=== PATIENT | male | born 1945 | race Caucasian/White ===

== ENCOUNTER 2016-11-25 07:16 | Inpatient (IN) | payer OTHER ==
[~2016-11-25 07:16] MED LIST: ACETAMINOPHEN 325 MG TAB PO ONE; CEFAZOLIN 2 GM/DEXTR 100 ML IV ONE; CHLORHEXIDINE GLUC HIBICLENS 118 ML BTL TP ONE; DEXAMETHASONE 4 MG/ML VIAL IVP ONE; FAMOTIDINE 20 MG TAB PO ONE; ROPI/epiNEPH/KETOROLAC JOINT COCKTAIL IU ONE; TRANEXAMIC ACID 3,000 MG in NS 50 ML IRR ONE
[2016-11-25] MEDS ORDERED: LIDOCAINE 1% 5 ML SDV ONE (07:29)
[2016-11-25] MEDS ORDERED: TRANEXAMIC ACID 3,000 MG/50 ML BAG IRR ONE (07:30)
[2016-11-25] MEDS ORDERED: SKIN ADHESIVE (DERMABOND) 1 EACH TP ONE (07:30)
[2016-11-25] MEDS ORDERED: LR 1,000 ML IV ONE (08:12)
[2016-11-25] MEDS ORDERED: MIDAZOLAM 2 MG/2 ML VIAL ONE (09:19)
[2016-11-25] MEDS ORDERED: PROPOFOL/EMULSION 500 MG/50 ML BOTTLE IV ONE ×2 (09:22→10:24)
[2016-11-25] MEDS ORDERED: LIDOCAINE 2% JELLY 5 ML TUBE ONE (09:51)
[2016-11-25] MEDS ORDERED: PHENYLEPHRINE HCL 100 MCG/ML SYR ONE (10:49)
[2016-11-25] MEDS ORDERED: oxyCODONE IR 5 MG TAB PO PRN (11:03)
[2016-11-25] MEDS ORDERED: POLYETHYLENE GLYCOL 3350 17 GM PKT PO PRN (11:03)
[2016-11-25] MEDS ORDERED: DIPHENOXYLATE/ATROPINE LOMOTIL 1 TAB PO PRN (11:03)
[2016-11-25] MEDS ORDERED: ONDANSETRON 4 MG/2 ML VIAL IVP PRN (11:03)
[2016-11-25] MEDS ORDERED: PROMETHAZINE HCL 25 MG SUPPR PR PRN (11:03)
[2016-11-25] MEDS ORDERED: METOCLOPRAMIDE 10 MG/2 ML VIAL IVP PRN (11:03)
[2016-11-25] MEDS ORDERED: PROMETHAZINE HCL 25 MG/ML INJ IVP PRN (11:03)
[2016-11-25] MEDS ORDERED: BISACODYL 10 MG SUPP PR PRN (11:03)
[2016-11-25] MEDS ORDERED: PHARMACY PAIN CONSULT 1 EA MISC PRN (11:03)
[2016-11-25] MEDS ORDERED: CYCLOBENZAPRINE 10 MG TAB PO PRN (11:03)
[2016-11-25] MEDS ORDERED: diphenhydrAMINE 25 MG CAP PO PRN (11:03)
[2016-11-25] MEDS ORDERED: LACTULOSE 20 GM/30 ML UDCUP PO PRN (11:03)
[2016-11-25] MEDS ORDERED: MAGNESIUM HYDROXIDE 30 ML UDCUP PO PRN (11:03)
[2016-11-25] MEDS ORDERED: TEMAZEPAM 15 MG CAP PO PRN (11:03)
[2016-11-25] MEDS ORDERED: ONDANSETRON DISINTEGRATING 4 MG TAB PO PRN (11:03)
--- NOTE | 2016-11-25 11:03 | POSTOPPROG ---
Post Op Note Date of Operation: 11/25/16 Surgeon: Olivier Conti Range Master: gualberto conti Anesthesiologist: dr. carter Anesthesia: Spinal Pre-op Diagnosis: right hip OA Post-op Diagnosis: same Indication: right hip pain due to OA that failed conservative measures Procedure: R JOSE ant approach Findings: severe hip OA Inf/Abcess present in the surg proc area at time of surgery?: No EBL: 100-500
[2016-11-25] MEDS ORDERED: LR 1,000 ML IV SCH (11:30)
--- NOTE | 2016-11-25 11:45 | DX ---
AP Pelvis History: Hip replacement surgery. Comparison: None. Findings: Bilateral bipolar hip prostheses are present and are in excellent anatomic alignment. There is postoperative gas surrounding the right hip. Impression: Excellent alignment of the bilateral hip replacements.
[2016-11-25] MEDS: ACETAMINOPHEN 325 MG TAB PO SCH ×3 (13:18→23:44)
[2016-11-25] MEDS: ceFAZolin 2 GM/DEXTROSE 100 ML IV SCH ×2 (13:18→22:30)
--- NOTE | 2016-11-25 18:00 | DX ---
Intraoperative fluoroscopy History: Right hip arthroplasty. Comparison: None available. Findings: A single intraoperative spot film shows a femoral sizing stem and acetabular cup in expecte d position. Fluoro time: 2.8 seconds. Dose: 0.4 mGy. Impression: Intraoperative fluoroscopy as above.
[2016-11-25] MEDS ORDERED: FLUTICASONE IH SCH (21:00)
[2016-11-25] MEDS ORDERED: SALMETER IH SCH (21:00)
[2016-11-25] MEDS: FLUTICASONE/SALMETER 250/50MCG DISKUS IH SCH (21:32)
[2016-11-25 21:34] VITALS: O2SAT 93
[2016-11-25] MEDS: FAMOTIDINE 20 MG TAB PO SCH (22:30)
[2016-11-25] MEDS: SENNOSIDES/DOCUSATE SODIUM TAB PO SCH (22:42)
[2016-11-25] MEDS: ASPIRIN 325 MG TAB PO SCH (22:42)
--- NOTE | 2016-11-26 02:58 | GOP ---
[f rep st] OPERATIVE REPORT DATE OF OPERATION: 11/25/2016 SURGEON: Manpreet Patel MD PACKING ROOM WORKER: JONE Perez ANESTHESIA: Spinal. PREOPERATIVE DIAGNOSIS: Right hip osteoarthritis. POSTOPERATIVE DIAGNOSIS: Right hip osteoarthritis. PROCEDURE PERFORMED: Right total hip arthroplasty. FINDINGS: ESTIMATED BLOOD LOSS: 200 cc. INDICATIONS: The patient has progressively worsening arthritis of the hip which has failed medical management. The patient understands the treatment options including continued non-operative care and has selected surgical intervention. The patient has decided to undergo total hip arthroplasty via the direct anterior approach, understanding the risks of the procedure including , but not limited to, neurovascular injury, infection, persistent pain, component wear and loosening, deep venous thrombosis, pulmonary embolism, limb length inequality, hip instability (including dislocation), and intra-operative fractures. DESCRIPTION OF PROCEDURE: After proper identification of the patient including verification and marking the surgical site, the patient was brought to the operating room and placed in the supine position. All bony prominences were well padded. Anesthesia was induced without complication and intravenous prophylactic antibiotics were administered prior to skin incision. The operative leg was placed in the Trumpf Arch table extension and the well leg in a Yellofin leg fitch. The patient was prepped and draped in the usual sterile fashion. The C-arm was draped for intra-operative fluoroscopy to check acetabular position, femoral component position including leg length and femoral offset. Attention was then drawn to surgical exposure of the hip. An incision was made with a #10 Bard Harley blade starting 3 cm lateral and 3 cm distal to the anterior superior iliac spine measuring 8-10 cm and coursing distally toward the greater trochanter. The skin and subcutaneous tissues were divided sharply down to the fascia lanre. The fascia lanre was incised in line with the skin incision exposing the underlying tensor fascia lanre muscle. The muscle was bluntly elevated from the fascia and the first extracapsular Cobra retractor was placed laterally at the junction of the superior femoral neck and greater trochanter. The lateral femoral circumflex vessels were identified, cauterized , and divided with the Aquamantys bipolar cautery. The deep investing fascia of the TFL was divided to allow proper mobilization of the muscle preventing damage during the retraction. The reflected head of the rectus femoris muscle was elevated off the anterior hip capsule and a medial Cobra retractor was placed just proximal to the lesser trochanter. The anterior capsulotomy was made sharply from the superolateral acetabulum to the saddle junction of the superior femoral neck and greater trochanter, then coursing inferomedial towards the lesser trochanter. The retractors were then placed in the intracapsular position for femoral neck osteotomy. Corresponding to pre-operative templating, the osteotomy was made with the oscillating saw carefully protecting the greater trochanter and soft tissues. The femoral head was removed from the acetabulum with a corkscrew and confirmed to be severely arthritic with exposed bone, deformity and osteophytes. Similar findings were confirmed in the acetabulum. The Arch table extension was then placed in 40 degrees external rotation. Attention was then drawn to the acetabular preparation. After placement of the anterior and posterior Cobra retractors outside the labrum and intracapsular, the circumferential labrum was removed sharply. The foveal contents were then removed and hemostasis obtained with cautery. The first reamer selected was sized using the removed femoral head. Reaming began with medialization and then commenced in 2 mm increments at 45 degrees of abduction and 15 degrees of anteversion using fluoroscopic navigation. Reaming ceased 1 mm less than the definitive acetabular component and corresponded to the pre-operative templating. The final acetabular component was inserted using fluoroscopy to achieve proper orientation yielding excellent purchase and stability in the acetabulum. The final acetabular liner was then placed and its seating confirmed. Attention was then turned to the femur. The Arch table extension was placed in extension and adduction, delivering the osteotomized femoral neck into the wound. A 2-pronged femoral elevator was placed at the calcar and another at the tip of the greater trochanter. The posterolateral capsule was released with cautery allowing mobilization of the femur lateral and anterior for preparation. The external rotators were visualized and preserved. A curette and rongeur were used to open the starting point for broaching. Serial broaching started with the #0 broach and ended with the broach that exhibited excellent fit in the proximal femur. A change in pitch during mallet strikes was accompanied by the inability to advance the broach any further. The trial reduction was performed and fluoroscopic navigation was utilized to check limb length. Adjustments were made to equalize limb length accordingly. After the final trials were accepted they were removed and the wound was copiously lavaged. The femoral component was seated to the same depth as the final broach and the femoral head was impacted onto the clean trunnion. The hip was then reduced for the final time and once more fluoroscopy was used to check that limb length equality was achieved. The wound was irrigated and closed in layers, the fascia lanre with 2-0 Quill, the subcutaneous tissue with 2-0 Quill, and the skin with Dermabond. Sterile dressings were applied. Final sharps and sponge counts were accurate. The patient was then transferred to a hospital bed and brought to the recovery room in stable condition. IMPLANTS: Accolade II size 6 at 127, acetabular component a 58 mm Tritanium. The liner is a Trident X3 36 mm. The head is a Biolox Delta 36 mm, +2.5. /[id number]/MODL MTDD
[2016-11-26 04:00] VITALS: BP 104/66; PULSE 64; RESP 15; TEMP 98.4
[2016-11-26 05:42] LABS: HEMATOCRIT 36.4 % (40.0-51.0); HEMOGLOBIN 12.8 g/dL (13.7-17.5)
[2016-11-26] MEDS: ACETAMINOPHEN 325 MG TAB PO SCH (06:12)
[2016-11-26] MEDS: SENNOSIDES/DOCUSATE SODIUM TAB PO SCH (07:46)
[2016-11-26] MEDS: ASPIRIN 325 MG TAB PO SCH (07:46)
[2016-11-26] MEDS: FAMOTIDINE 20 MG TAB PO SCH (07:46)
[2016-11-26] MEDS: FLUTICASONE/SALMETER 250/50MCG DISKUS IH SCH (07:52)
--- NOTE | 2016-11-26 09:40 | SOAPPROG ---
SOAP Progress Note Assessment/Plan: Assessment: Patient is doing well POD 1 s/p R JOSE 1.Pain management: pain is well controlled on oral pain meds 2.Anemia: level is expected initially postop. Asymptomatic. Cont to monitor for symptoms 3.VTE ppx: recommend aspirin 325mg daily. Cont ARTEMIO hosnadege and SCD 4. d/c planning: d/c to home today pending release from PT. 5. postop urinary retention: straight cath'd yesterday, resolved today. Plan: 11/26/16 09:36 Subjective: Ron is doing well today, denies SOB, chest pain and N/v. Objective: Vital Signs Temp Pulse Resp BP Pulse Ox 36.9 C 64 15 104/66 93 11/26/16 03:59 11/26/16 03:59 11/26/16 03:59 11/26/16 03:59 11/26/16 03:59 Laboratory Results 11/26/16 05:04 11/25/16 11/26/16 11/27/16 05:59 05:59 05:59 Intake Total 3125 Output Total 1980 300 Balance 1145 -300 RLE: incision dressing is clean and dry, NVI, +pf/df ICD10 Worksheet Patient Problems: Problems Problem Status Diagnosed Primary localized osteoarthritis of right hip Acute
--- NOTE | 2016-11-26 13:50 | GDS ---
[f rep st] DISCHARGE SUMMARY ADMISSION DIAGNOSIS: Right hip osteoarthritis. DISCHARGE DIAGNOSIS: Right hip osteoarthritis. PROCEDURE: Right total hip arthroplasty. VTE PROPHYLAXIS: Aspirin recommended for 3 weeks daily. BRIEF DESCRIPTION OF HOSPITAL STAY: Patient was admitted for an elective joint arthroplasty. The pa aartint tolerated the procedure well and has passed physical therapy. The patient was given appropriat e antibiotic prophylaxis and venous thromboembolism prophylaxis. The patient's pain was well control led on oral pain medication, patient was holding down food, and had urinated. Decision was made to d ischarge the patient. The patient was given post-operative prescriptions pre-operatively. PLAN: Please follow up as scheduled in Dr. Patel's office December 15 at 11:30 a.m. /[id number]/MODL
== END 2016-11-26 11:04 | disposition home or self-care (01) | DRG 470 ==
LOC: F3N 07:16
PROVIDERS: ADMIT Orthopaedic Surgery; ATTEND Orthopaedic Surgery
PROC: 0SR904Z Replacement of Right Hip Joint with Ceramic on Polyethylene Synthetic Substitute, Open Approach (ICD-10-PCS; principal; 2016-11-25 10:15)
DX: M16.11 Unilateral primary osteoarthritis, right hip (principal); J45.909 Unspecified asthma, uncomplicated; Z96.642 Presence of left artificial hip joint
CPT/HCPCS: 97116-GP; 97161-GP; 97165-GO; G8987-GO-CI; G8988-GO-CI; G8989-GO-CI; J0171; J0690; J1100; J1885; J2250; J2370; J2704; J2795